=== PATIENT | female | born 1960 | race Caucasian/White ===

== ENCOUNTER → 2017-03-03 17:18 | Outpatient (CLI) | payer BC ==
[2015-01-22 13:17] VITALS: BMI 44.5
[~2017-03-03 17:18] MED LIST: AMBIEN10 MG PO; CYCLOBENZAPRINE10 MG PO; GLUCOPHAGE1000 MG PO; TYLENOL #4 W/CO1 TAB PO
== END | disposition home or self-care (01) ==
LOC: D.MAMMO 13:45
DX: Z12.31 Encounter for screening mammogram for malignant neoplasm of breast (principal)

== ENCOUNTER → 2018-03-19 23:33 | Outpatient (CLI) | payer BC ==
[2015-01-22 13:17] VITALS: BMI 44.5
== END | disposition home or self-care (01) ==
LOC: D.MAMMO 03-18 15:30
DX: Z12.31 Encounter for screening mammogram for malignant neoplasm of breast (principal)

== ENCOUNTER → 2019-06-23 13:50 | Outpatient (CLI) | payer OTHER ==
[2015-01-22 13:17] VITALS: BMI 44.5
== END | disposition home or self-care (01) ==
LOC: D.HCCARDIO 13:50
PROVIDERS: ATTEND Internal Medicine Cardiovascular Disease
DX: I25.10 Atherosclerotic heart disease of native coronary artery without angina pectoris (principal)

== ENCOUNTER 2019-07-27 14:30 | Outpatient (CLI) | payer OTHER ==
[2015-01-22 13:17] VITALS: BMI 44.5
== END 2019-07-27 15:00 | disposition home or self-care (01) ==
LOC: D.MAMMO 14:30
PROVIDERS: ATTEND Family Medicine
DX: Z12.31 Encounter for screening mammogram for malignant neoplasm of breast (principal)

== ENCOUNTER 2020-02-03 15:33 | Observation (INO) | payer OTHER ==
[~2020-02-03] VITALS: Ht 149.9 cm; Wt 85.6 kg
--- NOTE | ~2020-02-03 | HEMODYNAMI ---
PATIENT:ROSEMARIE KANG MEDICAL RECORD: [id number] : 58 [facility] [id number] ADMISSION DATE: 02/03/20 Generatedon:02/04/202010:21 Patient name: ROSEMARIE KANG Patient #: [id number] SSN: DO B: 1960 Date of study: 02/04/2020 Page: Of Hemodynamic Procedure Report Patient Data Patient Demographics Procedure consent was obtained First Name: ROSEMARIE Gender: Female Last Name: JORGE LUIS : 1960 Middle Initial: D Age: 59 year(s) Patient #: [id number] Race: Additional ID: [id number] Contact details Address: [address] [place] [address] State: [place] City: [place] Zip code: [address] Past Medical History Allergies: No known allergies Admission Admission Data Admission Date: 02/03/2020 Admission Time: 17:07 Admit Source: Other Insurance Payor: Private Room #: [id number] health insurance Height (in.): 59.06 BSA: 1.8 (m2) Height (cm.): 150 BMI: 38.22 (kg/m2) Weight (lbs.): 189.6 Weight (kg.): 86 Current Diagnosis Diagnosis Description NSTEMI Lab Results Lab Result Date: 02/04/2020 Lab Result Time: 0:00 Biochemistry Name Units Result Min Max Creatinine mg/dl 0.8 --(-*--)-- 0.6 1.3 eGFR ml/min 90 --(*---)-- 90 120 NONAFRICAN Troponin l ng/ml 27 --(----)-* 0 0.06 CBC Name Units Result Min Max Hematocrit % 42.2 --(*---)-- 42 54 Hemoglobin g/dl 14.8 --(-*--)-- 13.5 17.5 Procedure Procedure Types Cath Procedure Diagnostic Procedure C [facility] w/Coronaries Sedation Charges Moderate Sedation up to 45 minutes Procedure Description Procedure Date Procedure Date: 02/04/2020 Procedure Start Time: 9:35 Procedure End Time: 10:18 Procedure Staff Name Function Rashad Hager MD Performing Physician Tanja Fleming RT Monitor Candy Sinha RT Monitor Huma Gibson RN Nurse Rukhsana Biggs RT Scrub Procedure Data Cath Procedure Fluoroscopy Diagnostic fluoroscopy Total fluoroscopy Time: 4.4 time: 4.4 min min Diagnostic fluoroscopy Total fluoroscopy dose: 815 dose: 815 mGy mGy Contrast Material Contrast Material Type Amount (ml) Isovue 300 98 Entry Location Entry Primary Successful Side Size Upsize Upsize Entry Closure Succes sful Closure Location (Fr) 1 (Fr) 2 (Fr) Remarks Device Remarks Femoral Right 5 Fr Exoseal artery Estimated blood loss: 10 ml Diagnostic catheters Device Type Used For End Catheter Placement MULTIPACK JL 4.0 5Fr Procedure catheter MULTIPACK 3DRC 5Fr Procedure catheter MULTIPACK Pigtail 5 Fr Ventriculography catheter DIAGNOSTIC IM 5Fr Procedure catheter ([id number]) Procedure Complications No complications Procedure Medications Medication Administration Route Dosage 0.9% NaCl I.V. 100 ml/hr Oxygen etCO2 Nasal cannula 2 l/min Lidocaine 2% added to field 20 Heparin Flush Bag added to field 2 bags (1000units/500ml NS) Versed I.V. 2 mg Fentanyl I.V. 50 mcg Fentanyl I.V. 50 mcg Hemodynamics Rest BSA: 1.8 (m2) HGB: 14.8 (g/dl) O2 Consumption: Estimated: 176.57 (ml/min) O2 Con sumption indexed: Estimated:98.09 (ml/min/m) Heart Rate: 79 (bpm) Pressure Samples Time Site Value (mmHg) Purpose Heart Use Rate(bpm) 9:58 LV 138/3,21 Snapshot 96 9:59 LV 140/5,22 Snapshot 97 10:00 AO 147/72(103) Pullback 100 10:00 LV 148/2,24 Pullback 100 Gradients Valve Time Site 1 Site 2 Mean SEP/DFP Peak To Heart Use (mmHg) (sec/min) Peak Rate (mmHg) (bpm) Aortic 10:00 LV AO 18 9 1 100 148/2,24 147/72(103) Calculations Valve P-P Mean Valve Index Valve Source Name Gradient Area Flow (cm2) Aortic 1 18 1 18 Snapshots Pre Cath Intra NCS Post Cath Vital Signs Time Heart Resp SPO2 etCO2 NIBP (mmHg) Rhythm Pain Sedation Rate (ipm) (%) (mmHg) Status Level (bpm) 9:13:57 81 22 96 33 138/69(104) NSR 0 (11) 10(A) , No pain 9:18:17 90 19 97 33 141/71(113) NSR 0 (11) 10(A) , No pain 9:22:27 91 17 97 33.6 128/72(93) NSR 0 (11) 10(A) , No pain 9:26:37 91 18 97 34.8 125/71(105) NSR 0 (11) 10(A) , No pain 9:30:57 91 18 97 34 130/68(96) NSR 0 (11) 9(A) , No pain 9:35:17 88 17 97 10.5 122/62(101) NSR 0 (11) 9(A) , No pain 9:39:36 90 17 97 31.6 119/64(86) NSR 0 (11) 9(A) , No pain 9:43:54 90 18 98 24.1 125/64(91) NSR 0 (11) 9(A) , No pain 9:48:12 86 16 98 9.8 127/66(90) NSR 0 (11) 9(A) , No pain 9:52:32 85 17 98 9.7 130/72(95) NSR 0 (11) 9(A) , No pain 9:56:52 86 16 98 9.7 132/69(91) NSR 0 (11) 9(A) , No pain 10:01:08 91 18 98 8.2 131/71(96) NSR 0 (11) 9(A) , No pain 10:05:28 90 18 97 17 141/70(100) NSR 0 (11) 9(A) , No pain 10:09:50 87 18 97 13.5 136/74(105) NSR 0 (11) 9(A) , No pain 10:14:13 84 19 98 11.3 139/69(100) NSR 0 (11) 10(A) , No pain 10:18:33 83 19 98 15.8 137/71(109) NSR 0 (11) 10(A) , No pain Medications Time Medication Route Dose Verified Delivered Reason Notes Effe ctiveness by by 9:18:50 0.9% NaCl I.V. 100 Rashad Huma used for ml/hr Madan Gibson hospital clerk 9:18:56 Oxygen etCO2 2 Rashad Huma used for Nasal l/min Madan Gibson procedure cannula RN 9:19:02 Lidocaine 2% added 20ml Rashad Rashad for local to vial Madan Hager MD anesthetic field 9:19:07 Heparin Flush added 2 Rashad Rashad used for Bag to bags Madan Hager MD procedure (1000units/500ml field NS) 9:19:13 Versed I.V. 2 mg Rashad Rashad for Madan Hager MD sedation 9:19:19 Fentanyl I.V. 50 Rashad Rashad for mcg Madan Hager MD sedation 9:26:57 Fentanyl I.V. 50 Rashad Rashad for mcg Madan Hager MD sedation Procedure Log Time Note 8:39:40 Informed consent obtained and on chart 8:39:51 ACC Patient presents with Non-STEMI CCS Anginal Class 3--Marked limitation of physical activity, angina occurs with ordinary activity.. 8:39:58 Admit Source: Other 8:40:45 Procedure Status Urgent Heart Cath (IP). 8:40:47 Time tracking: Regular hours (M-F 7:00 - 5:00) 8:40:52 Plan of Care:Hemodynamics will remain stable., Cardiac rhythm will remain stable., Comfort level will be maintained., Respiratory function will remain adequate., Patient/ family verbilizes understanding of procedure., Procedure tolerated without complication., Recovers from procedure without complications.. 8:40:59 H&P Date Dictated: 02/04/2020 Within 30 days and on chart.. 8:41:10 Patient allergic to No known allergies 8:41:13 Is the patient allergic to Iodine/contrast media? No. 8:41:15 Was the patient premedicated? N/A 8:42:52 Is patient on blood thinner?No 8:42:56 ACC The patient was administered the following blood thiners within the last 24 hours: ACCLovenox 8:43:03 Patient diabetic? Yes. 8:43:16 If diabetic: On Metformin? No 8:43:22 Patient not . Patient is over age 55. 8:44:51 Patient Height : 59.06 inches 8:44:58 Patient Weight : 189.6 lbs 8:45:02 Current Diagnosis : NSTEMI 8:45:15 Insurance Payor : Private health insurance 8:46:01 Lab Result : Creatinine 0.8 mg/dl 8:46:01 Lab Result : Hemoglobin 14.8 g/dl 8:46:01 Lab Result : Hematocrit 42.2 % 8:46:01 Lab Result : Troponin l 27 ng/ml 8:46:01 Lab Result : eGFR NONAFRICAN 90 ml/min 9:00:42 Candy Sinha RT(R) sent for patient. Start room use. 9:04:52 Risk of Mortality: .1 9:04:55 Risk of blood transfusion: .2 9:04:57 Risk of MAYA: 1.1 9:08:26 Patient received from Med II to CCL 1 Alert and oriented. Tansferred to table in Supine position. 9:08:27 Warm blankets applied, and sabra hugger turned on for patient comfort. 9:08:28 Correct patient and procedure confirmed by team. 9:08:28 ECG and BP/O2 sat monitors applied to patient. 9:12:42 Vital chart was started 9:12:44 Baseline sample Acquired. 9:12:50 Rhythm: sinus rhythm 9:12:52 Full Disclosure recording started 9:12:54 Pre-procedure instructions explained to patient. 9:13:01 Family unavailable. 9:13:05 Patient NPO since Midnight. 9:13:19 Previous problem with sedation/anesthesia? No ? 9:13:20 Snore? Yes 9:13:23 Sleep apnea? No 9:13:31 Dentures? Yes IN TIGHT 9:13:41 Patient pain scale 0/10 ?. 9:13:47 IV patent on arrival in right forearm with 0.9% NaCl at [facility]. 9:13:51 Lab results completed and on chart. 9:13:55 Right groin area was prepped with chlora-prep and draped in sterile fashion 9:13:56 Alarms reviewed by R. N. 9:13:57 Sharps counted by scrub and verified by R.N. 9:13:59 Physician paged 9:14:02 Physician arrived 9:14:03 --------ALL STOP TIME OUT------ 9:14:04 Final Timeout: patient, procedure, and site verified with staff and physician. All members of the team are in agreement. 9:14:08 Right groin site verified by team. 9:14:13 Fire Safety Assessment: A--An alcohol-based skin anteseptic being used preoperatively., C--Open oxygen or nitrous oxide is being used., D--An ESU, laser, or fiber-optic light is being used. 9:14:17 Physical assessment completed. ASA score P 3 - A patient with severe systemic disease as per Rashad Hager MD. 9:14:21 1) 90+ Normal kidney functon but urine findings or structural abnormalities or genetic trait point to kidney disease. 9:14:24 Maximum allowable contrast dose (3.7 X eGFR X 0.75)250 ml. 9:14:29 Sedation plan: IV Moderate Sedation Medication:Versed, Fentanyl 9:14:32 Use device set Femoral Dx 9:14:34 ACIST Syringe (08242) opened to sterile field. 9:14:34 Bag Decanter (2002S) opened to sterile field. 9:14:35 Medline Cath Pack ([id number]) opened to sterile field. 9:14:35 ACIST Hand Control (34704) opened to sterile field. 9:14:36 ACIST Manifold (52240) opened to sterile field. 9:14:37 DIAGNOSTIC Multipack 5Fr catheter set (OM2526) opened to sterile field. 9:14:40 SHEATH 5FR [place] (PHY185) opened to sterile field. 9:14:40 EMERALD Guide Wire (034-185) opened to sterile field. 9:18:50 0.9% NaCl 100 ml/hr I.V. was administered by Huma Gibson RN; used for procedure; Verbal order read back and verified. 9:18:56 Oxygen 2 l/min etCO2 Nasal cannula was administered by Huma Gibson RN; used for procedure; Verbal order read back and verified. 9:19:02 Lidocaine 2% 20ml vial added to field was administered by Rashad Hager MD; for local anesthetic; Verbal order read back and verified. 9:19:07 Heparin Flush Bag (1000units/500ml NS) 2 bags added to field was administered by Rashad Hager MD; used for procedure; Verbal order read back and verified. 9:19:13 Versed 2 mg I.V. was administered by Rashad Hager MD; for sedation; Verbal order read back and verified. 9:19:19 Fentanyl 50 mcg I.V. was administered by Rashad Hager MD; for sedation; Verbal order read back and verified. 9:26:26 Zero performed for pressure channel P1 9:26:57 Fentanyl 50 mcg I.V. was administered by Rashad Hager MD; for sedation; Verbal order read back and verified. 9:33:44 Procedure started. 9:35:34 Local anesthetic to right femoral artery with Lidocaine 2% by Rashad Hager MD.INITIAL ACCESS ONLY 9:42:41 MICROPUNCTURE 4FR DioGenix ([id number]) opened to sterile field. 9:47:41 Access obtained with 4Fr micropunture. 9:47:56 A 5 Fr sheath was inserted into the Right Femoral artery 9:48:01 J wire advanced. 9:50:54 A MULTIPACK JL 4.0 5Fr catheter was advanced over the wire and used for Procedure. 9:50:58 LCA angiography performed. 9:53:57 Catheter removed. 9:54:05 A MULTIPACK 3DRC 5Fr catheter was advanced over the wire and used for Procedure. 9:55:52 RCA angiography performed. 9:56:42 Catheter removed. 9:56:51 A MULTIPACK Pigtail 5 Fr catheter was advanced over the wire and used for Ventriculography. 9:56:56 LV angiography performed. 10:00:15 EF : 35 % 10:01:08 Catheter removed. 10:01:18 A DIAGNOSTIC IM 5Fr catheter ([id number]) was advanced over the wire and used for Procedure. 10:02:18 WINKLER angiography performed. 10:03:17 EXOSEAL 5Fr (EX500) opened to sterile field. 10:03:24 Aortic Root visualized 10:16:05 Sheath removed intact; hemostasis achieved with Exoseal to the Right Femoral artery. 10:16:13 Procedure ended.(Physican Out) 10:16:28 Fluoroscopy time 04.40 minutes. 10:16:34 Flurop Dose total: 815 10:16:34 Fluoroscopy dose: 815 mGy 10:16:41 Dose Area Product 24524 mGy/cm. 10:16:52 Contrast amount:Isovue 300 98ml. 10:16:54 Maximum allowable dose exceeded? No. 10:16:57 Insertion/operative site no bleeding no hematoma. 10:17:03 Post right femoral artery:stable 10:17:12 Post Procedure Pulses reassessed and unchanged 10:17:19 Post procedure rhythm: sinus rhythm 10:17:22 Estimated blood loss: 10 ml 10:17:41 Procedure type changed to Cath procedure, Diagnostic procedure, LHC, [facility] w/Coronaries, Sedation Charges, Moderate Sedation up to 45 minutes 10:17:43 Procedure and supply charges have been captured, reviewed, submitted and are correct. 10:18:02 Procedure Complication : No complications 10:18:07 Vital chart was stopped 10:18:15 [facility] Findings: MVD- MD will discuss options w/ pt 10:18:25 See physician's report for complete and final results. 10:18:27 Report given to Pre/Post Procedure Room. 10:18:32 Patient transfered to [facility] with Bed. 10:18:36 Procedure ended. 10:18:36 Full Disclosure recording stopped 10:18:40 End room use (Document Last) 10:19:57 End room use (Document Last) 10:20:39 End room use (Document Last) Device Usage Item Name Manufacture Quantity Catalog Hospital Part Current Minimal Lot# / Number Charge Number Stock Stock Serial# Code ACIST Syringe Acist 1 36341 216856 186863 139500 20 (44202) Medical Systems Inc Bag Decanter Microtek 1 225587 46963 382064 5 () Medical Inc. Medline Cath Medline 1 [id number] 486754 29486 406632 5 Pack ([id number]) ACIST Hand Acist 1 59386 937609 898344 536663 5 Control Medical (06476) Systems Inc ACIST Acist 1 26987 220623 667255 196362 5 Manifold Medical (61218) Systems Inc DIAGNOSTIC Cardinal 1 XI7016 870305 87114 303936 30 Multipack 5Fr Health catheter set (YB6679) SHEATH 5FR Terumo 1 ESN620 722766 278759 948251 5 [place] (TWT095) EMERALD Guide Cardinal 1 502-455 403350 304401 699615 5 Wire Health (010-632) MICROPUNCTURE Cook Medical 1 K17349 509500 691218 670130 5 4FR Cook (B82607) MULTIPACK JL Cardinal 1 507900 5 4.0 5Fr Health catheter MULTIPACK Cardinal 1 261915 5 3DRC 5Fr Health catheter MULTIPACK Cardinal 1 192393 5 Pigtail 5 Fr Health catheter DIAGNOSTIC IM Cardinal 1 [id number] 491921 228983 634939 5 5Fr catheter [employer] Solutions ([id number]) EXOSEAL 5Fr Cardinal 1 EX500 385556 252089 613366 10 (EX500) Health Signature Audit Mitchell Stage Time Signature Unsigned Intra-Procedure 02/04/2020 Candy Sinha 10:19:57 AM RT(R) Intra-Procedure 02/04/2020 Huma Gibson 10:20:39 AM RN Intra-Procedure 02/04/2020 Rashad Hager MD 10:21:07 AM [facility] [address] [place] [address]
[2020-02-03 15:59] LABS: BASOPHILS 0.7 % (0-2); EOSINOPHILS 2.4 % (0-7); HEMOGLOBIN 15.3 g/dL (12-16); IMMATURE GRANULOCYTES 0.4 % (0-5); LYMPHOCYTES 48.5 % (15-50); MCHC 35.6 g/dL (31.0-37.0); MCV 92.7 fL (80.0-100.0); MEAN PLATELET VOLUME 11.2 fL (7.4-10.4); MONOCYTES 5.7 % (2-11); NEUTROPHILS 42.3 % (40-80); PLATELET COUNT 259 10x3/uL (130-400); RBC 4.64 10x6/uL (4.00-5.40); RDW 12.8 % (11.5-14.5); WBC 9.6 10x3/uL (4.8-10.8)
[2020-02-03 16:25] LABS: APTT 24.4 SECONDS (22.8-39.4); INR 0.92 (0.85-1.17); PROTIME 12.3 SECONDS (11.6-15.0)
--- NOTE | 2020-02-03 16:39 | NUR ---
PT REPORTS IMPROVEMENT IN PAIN WITH THE NITRO. STATES THE PAIN SILL COMES AND GOES.
[2020-02-03 16:45] LABS: CALC OSMOLALITY 276 mosm/kg (275-300); CARBON DIOXIDE 28.1 mmol/L (21.0-32.0); CHLORIDE - SERUM 100 mmol/L (98-107); CREATININE - SERUM 0.8 mg/dL (0.6-1.3); GLUCOSE 202 mg/dL (74-106); POTASSIUM - SERUM 4.1 mmol/L (3.5-5.1); SODIUM 136 mmol/L (136-145); UREA NITROGEN 9 mg/dL (7-18); eGFR NON AFRICAN AMERICAN 77 mL/min (90-120)
[2020-02-03 16:48] VITALS: BP 192/76
[2020-02-03 16:59] LABS: ALBUMIN 3.7 g/dL (3.4-5.0); ALKALINE PHOSPHATASE 80 U/L (30-120); ALT (SGPT) 17 U/L (10-68); BILIRUBIN - TOTAL 0.34 mg/dL (0.2-1.3); CKMB 0.4 U/L (0.0-3.6); CREATINE KINASE 34 UL (21-215); MAGNESIUM - SERUM 1.9 mg/dL (1.8-2.4); TROPONIN-I 0.021 ng/mL (0.000-0.060)
[2020-02-03 18:27] VITALS: BP 162/67
--- NOTE | 2020-02-03 19:03 | NUR ---
ADMIT TO ROOM 211 FROM ER. ALERT/ORIENTED. ADMISSION HISTORY COMPLETED. TELEMETRY INITIATED, . DENIES PAIN OR DISCOMFORT AT THIS TIME. STATES SHE HAS ALREADY SEEN DR DIAZ AND HE TOLD HER HE WAS JUST KEEPING HER OVERNIGHT TO SEE IF THE PAIN REOCCURRED. MONITOR/ CPOC.
--- NOTE | 2020-02-03 19:25 | NUR ---
PT ARRIVED TO FLOOR. ALERT AND ORIENTED. ON ROOM AIR. PT STATES SHE HAS NO FURHTER NEEDS AT THIS TIME. BED LOW. CL IN REACH. STATED TO PT JUAN RN WILL BE HER NURSE FRANCISCO JAVIER AND SHE WILL BE IN TO SEE HER IN A LITTLE BIT. PT VERBALIZED UNDERSTANDING.
[2020-02-03 20:44] VITALS: BP 166/67
[2020-02-04] VITALS: BP 155/56
[2020-02-04 01:30] LABS: CKMB 116.3 U/L (0.0-3.6)
[2020-02-04 02:26] LABS: CREATINE KINASE 631 UL (21-215); TROPONIN-I 11.586 ng/mL (0.000-0.060)
--- NOTE | 2020-02-04 02:40 | NUR ---
PAGE VIA ANSWERING SERVICE AT [address] DIAZ TO REPORT CRITICAL TROPONIN RESULTS OF 11.586. AWAITING RETURN CALL.
[2020-02-04 02:54] VITALS: BP 166/67; Ht 149.9 cm; Wt 85.6 kg
--- NOTE | 2020-02-04 03:28 | NUR ---
2ND PAGE TO DR DIAZ VIA ANSWERING SERVICE D/T NO RETURN CALL.
[2020-02-04 04:00] VITALS: BP 127/61
--- NOTE | 2020-02-04 04:09 | NUR ---
NO RETURN CALL FROM DR DIAZ. PT IS SLEEPING. SR PER TELEMETRY. NO DISTRESS. NO REPORTS OF PAIN OR DISCOMFORT. KEEPING NPO UNTIL SEEN BY MD IN AM.
[2020-02-04 05:10] LABS: BASOPHILS 0.3 % (0-2); EOSINOPHILS 0.5 % (0-7); HEMATOCRIT 42.2 % (36.0-48.0); HEMOGLOBIN 14.8 g/dL (12-16); IMMATURE GRANULOCYTES 0.3 % (0-5); LYMPHOCYTES 21.4 % (15-50); MCH 32.1 pg (26.0-34.0); MCHC 35.1 g/dL (31.0-37.0); MCV 91.5 fL (80.0-100.0); MEAN PLATELET VOLUME 9.8 fL (7.4-10.4); MONOCYTES 5.7 % (2-11); NEUTROPHILS 71.8 % (40-80); PLATELET COUNT 245 10x3/uL (130-400); RBC 4.61 10x6/uL (4.00-5.40); RDW 12.5 % (11.5-14.5)
[2020-02-04 05:11] LABS: WBC 15.3 10x3/uL (4.8-10.8)
[2020-02-04 07:04] LABS: ALBUMIN 3.6 g/dL (3.4-5.0); ALKALINE PHOSPHATASE 79 U/L (30-120); BILIRUBIN - TOTAL 0.53 mg/dL (0.2-1.3); CALC OSMOLALITY 274 mosm/kg (275-300); CALCIUM 8.8 mg/dL (8.5-10.1); CARBON DIOXIDE 21.7 mmol/L (21.0-32.0); CHLORIDE - SERUM 101 mmol/L (98-107); CKMB 211.9 U/L (0.0-3.6); CREATININE - SERUM 0.7 mg/dL (0.6-1.3); GLUCOSE 171 mg/dL (74-106); POTASSIUM - SERUM 3.9 mmol/L (3.5-5.1); PROTEIN - SERUM 7.3 g/dL (6.4-8.2); SODIUM 136 mmol/L (136-145); UREA NITROGEN 9 mg/dL (7-18); eGFR NON AFRICAN AMERICAN 90 mL/min (90-120)
[2020-02-04 07:07] LABS: ALT (SGPT) 27 U/L (10-68); CREATINE KINASE 1225 UL (21-215); TROPONIN-I 26.589 ng/mL (0.000-0.060)
[2020-02-04] MEDS ORDERED: ZOCOR40 MG PO (07:57)
[2020-02-04] MEDS ORDERED: LEVOTHYROXINE50 MCG PO (07:57)
[2020-02-04] MEDS ORDERED: ESTRACE 0.5 MG0.5 MG PO (07:59)
[2020-02-04 08:13] LABS: MAGNESIUM - SERUM 1.9 mg/dL (1.8-2.4); PHOSPHOROUS 3.2 mg/dL (2.5-4.9)
[2020-02-04 08:52] LABS: CHOL - HDL RATIO 3.9 ratio (2.3-4.1); LDL-HDL RATIO 2.1 ratio (1.5-3.5)
--- NOTE | 2020-02-04 09:00 | NUR ---
CONSENTS SIGNED. PRE-OPS GIVEN. TO LOADING UNIT TOOL SETTER BY BED.
[2020-02-04 09:04] VITALS: BP 157/72
--- NOTE | 2020-02-04 10:46 | NUR ---
BACK FROM REDUCER. VS WNL. RIGHT GROIN STABLE WITHOUT BLEEDING OR HEMATOMA NOTED. WILL MONITOR.
--- NOTE | 2020-02-04 10:50 | MORECARE ---
CASE MANAGEMENT DISCHARGE SUMMARY PATIENT: ROSEMARIE KANG UNIT: [id number] ADM DATE: 02/03/20 AGE: 59 : 58 SEX: F ROOM/BED: D.1131 AUTHOR: CAROL RUIZ PHYSICIAN: REFERRING PHYSICIAN: PRATIBHA MORALES MD DATE OF SERVICE: 02/04/20 Discharge Plan Patient Name: ROSEMARIE KANG Facility: [facility]:[place] : 1960 Planned Disposition: Anticipated Discharge Date: Discharge Date: Expected LOS: Initial Reviewer: [email or web address] Initial Review Date: 02/04/2020 Generated: 02/04/20 11:49 am Comments DCP- Discharge Planning Updated by [email or web address]: Keily Degroot on 02/04/20 9:[address] Patient Name: ROSEMARIE KANG Admission Status: ER Accout number: [id number] Admission Date: 02-03-2020 : 1960 Admission Diagnosis: Attending: PRATIBHA MORALES Current LOS: 1 Anticipated DC Date: Planned Disposition: Primary Insurance: [facility] Discharge Planning Comments: CM SPOKE WITH COMPUTER NETWORKER DIANA, PATIENT IS BEING TRANSFERED TO [facility] IN [place] BY DR. DIAZ. NADIA SRIVASTAVA IS ACCEPTING PHYSICIAN. TRACK LAYER HEADKRISTEN RN IS TAKING CARE OF PAPERWORK. CM TO FOLLOW AND ASSIST NEEDED. Payroll Accounting Clerk: Keily Degroot Patient Name: ROSEMARIE KANG Page [phone] at 1050 All edits/amendments must be made on the electronic document DICTATION DATE: 02/04/20 1049 RUBY DEVELOPER: DM 02/04/20 1049 RPT#: [id number] DC DATE: STATUS: ADM IN [facility] [address] [place] [address] END OF REPORT
--- NOTE | 2020-02-04 11:30 | NUR ---
REPORT CALLED TO NORIS BAIRD. [facility] CALLED FOR TRANSPORTATION. COBRA FORM SIGNED INDICATED. WILL CONT. PLAN OF CARE.
--- NOTE | 2020-02-04 12:22 | NUR ---
BED REST UP. GROIN STABLE.
[2020-02-04 12:34] LABS: CKMB 173.8 U/L (0.0-3.6)
[2020-02-04 12:55] LABS: CREATINE KINASE 1108 UL (21-215); TROPONIN-I 47.171 ng/mL (0.000-0.060)
--- NOTE | 2020-02-04 13:04 | NUR ---
LEAVING FOR EPISCOPAL VIA EMS.
--- NOTE | 2020-02-04 15:44 | MORECARE ---
CASE MANAGEMENT DISCHARGE SUMMARY PATIENT: ROSEMARIE KANG UNIT: [id number] ADM DATE: 02/03/20 AGE: 59 : 58 SEX: F ROOM/BED: D.6157 AUTHOR: CAROL RUIZ PHYSICIAN: REFERRING PHYSICIAN: PRATIBHA MORALES MD DATE OF SERVICE: 02/04/20 Discharge Plan Patient Name: ROSEMARIE KANG Facility: [facility]:[place] : 1960 Planned Disposition: Anticipated Discharge Date: Discharge Date: 02/04/2020 Expected LOS: Initial Reviewer: [email or web address] Initial Review Date: 02/04/2020 Generated: 02/04/20 4:44 pm DCP- Discharge Planning Updated by [email or web address]: Keily Degroot on 02/04/20 9:[address] Patient Name: ROSEMARIE KANG Admission Status: ER Accout number: [id number] Admission Date: 02-03-2020 : 1960 Admission Diagnosis: Attending: PRATIBHA MORALES Current LOS: 1 Anticipated DC Date: Planned Disposition: Primary Insurance: [facility] Discharge Planning Comments: CM SPOKE WITH FACILITIES MAINTENANCE SUPERVISOR DIANA, PATIENT IS BEING TRANSFERED TO [facility] IN [place] BY DR. DIAZ. NADIA SRIVASTAVA IS ACCEPTING PHYSICIAN. STITCH BONDING MACHINE DRAWER IN, KRISTEN PARKER IS TAKING CARE OF PAPERWORK. CM TO FOLLOW AND ASSIST NEEDED. Psychiatry Physician: Keily Degroot Last DP export: 02/04/20 9:50 a Patient Name: ROSEMARIE KANG Page [id number] at 1544 All edits/amendments must be made on the electronic document DICTATION DATE: 02/04/20 1544 REPAIR WEAVER: CAMI 02/04/20 1544 RPT#: [id number] DC DATE:02/04/20 STATUS: DIS IN [facility] [address] [place] [address] END OF REPORT
== END 2020-02-04 13:04 | disposition short-term general hospital (02) ==
LOC: D.ER 15:33 → D.M2 17:07 → OBSVTIME 17:30 → D.M2 02-04 13:04
PROVIDERS: Family Medicine; Internal Medicine Cardiovascular Disease; ADMIT Internal Medicine Nephrology; ATTEND Internal Medicine Nephrology
DX: I21.4 Non-ST elevation (NSTEMI) myocardial infarction (principal); I25.110 Atherosclerotic heart disease of native coronary artery with unstable angina pectoris; R07.9 Chest pain, unspecified; E11.9 Type 2 diabetes mellitus without complications; E03.9 Hypothyroidism, unspecified; E78.5 Hyperlipidemia, unspecified; F17.203 Nicotine dependence unspecified, with withdrawal